=== PATIENT | female | born 1945 | race Caucasian/White ===

== ENCOUNTER → 2021-02-23 | Outpatient (REF) | payer MEDICARE | LOC: M LAB REF 14:53 | PROVIDERS: ATTEND Physician Assistant | DX: C44.311 Basal cell carcinoma of skin of nose (principal) | CPT/HCPCS: 11102; 88305; G0463 ==

== ENCOUNTER 2021-04-02 21:38 | Emergency (ER) | payer MEDICARE ==
[~2021-04-02] VITALS: Ht 167.6 cm; Wt 83.3 kg
[2021-04-02] MEDS ORDERED: ROSU20TA5 (21:49)
[2021-04-02] MEDS ORDERED: METO1TAB33 (21:49)
[2021-04-02] MEDS ORDERED: TRIA37.53 (21:49)
[2021-04-02] MEDS ORDERED: OMEP-218 (21:49)
[2021-04-02] MEDS ORDERED: MONT10TA10 (21:49)
[2021-04-02] MEDS ORDERED: XARE20TA (21:49)
[2021-04-02] MEDS ORDERED: AMLO1TAB24 (21:49)
[2021-04-03] MEDS ORDERED: SILVER NITRATE APPLICATOR TOP ONE (00:25)
[2021-04-03 01:39] VITALS: BP 162/83
== END 2021-04-03 01:40 | disposition home or self-care (01) ==
LOC: M ED 21:38
DX: L76.21 Postprocedural hemorrhage of skin and subcutaneous tissue following a dermatologic procedure (principal); I10 Essential (primary) hypertension; J84.9 Interstitial pulmonary disease, unspecified; K21.9 Gastro-esophageal reflux disease without esophagitis; E78.5 Hyperlipidemia, unspecified; I48.91 Unspecified atrial fibrillation; Z85.828 Personal history of other malignant neoplasm of skin; Z79.899 Other long term (current) drug therapy; Z79.01 Long term (current) use of anticoagulants; Z88.0 Allergy status to penicillin; Z91.041 Radiographic dye allergy status